=== PATIENT | male | born 1975 ===

== ENCOUNTER 2017-07-26 11:30 | Emergency (ER) | payer OTHER ==
[2017-07-26 11:30] VITALS: BMI 29.6
[2017-07-26 11:45] VITALS: TEMP 98.6; O2SAT 98
[2017-07-26] MEDS ORDERED: Amoxicillin-Clav 875-125 mg Tab PO STA (12:28)
--- NOTE | 2017-07-26 12:31 | ED PDOC ---
Arrival/HPI - General Chief Complaint: Cough, Cold, Congestion Time Seen by Provider: 07/26/17 12:28 Historian: Patient - History of Present Illness Narrative History of Present Illness (Text): 07/26/17 41 yo male w/o significant PMHx come in for evaluation of nasal congestion, runny nose, sore throat gradually worsen for past few days. Pt reports, developed frontal headache since yesterday. Otherwise, pt denies high fever, chills, denies worse headache life, visual changes, focal deficits, syncope, throat tightness, neck pain, CP, SOB, dyspnea, diaphoresis, palpitation, abd. pain, N/V/D, back pain, UTI sx. Ambulate to Ed for evaluation, not in any apparent distress. Past Medical History - Provider Review Nursing Documentation Reviewed: Yes - Travel History Have you recently traveled outside [place] w/in the past 3 mons?: No - Past History Past History: No Previous - Infectious Disease Hx of Infectious Diseases: None - Tetanus Immunization Tetanus Immunization: Unknown - Psychiatric Hx Substance Use: No Family/Social History - Physician Review Nursing Documentation Reviewed: Yes Family/Social History: No Known Family HX Smoking Status: Never Smoked Hx Alcohol Use: Yes Frequency of alcohol use: Socially Hx Substance Use: No Allergies/Home Meds Allergies/Adverse Reactions: Allergies No Known Allergies Allergy (Verified 07/26/17 11:45) Review of Systems - Physician Review All systems were reviewed & negative as marked: Yes - Review of Systems Constitutional: Normal Eyes: Normal ENT: Sore Throat, Rhinorrhea Respiratory: Normal Cardiovascular: Normal Gastrointestinal: Normal Genitourinary Male: Normal Musculoskeletal: Normal Skin: Normal Neurological: Headache. absent: Dizziness Endocrine: Normal Hemo/Lymphatic: Normal Psychiatric: Normal Physical Exam Vital Signs Temp Pulse Resp BP Pulse Ox 07/26/17 12:37 72 17 125/80 98 07/26/17 11:42 98.6 F 74 16 130/85 98 Temperature: Afebrile Blood Pressure: Normal Pulse: Regular Respiratory Rate: Normal Appearance: Positive for: Well-Appearing, Non-Toxic, Comfortable Pain Distress: None Mental Status: Positive for: Alert and Oriented X 3 - Systems Exam Head: Present: Normocephalic Conjunctiva: Present: Normal Ears: Present: NORMAL TM (B/L) Mouth: Present: Moist Mucous Membranes, Normal Lips. No: Drooling Pharnyx: Present: Other (uvula midline, no edema.). No: ERYTHEMA, EXUDATE, TONSILS ENLARGED Nose (Internal): Present: Moist, Engorged, Rhinorrhea (clear B/L), Other (B/L mild paranasal tenderness, no edema, no erythema. Mild B/L frontal sinus tenderness, no edema, no erythema.) Neck: Present: Trachea Midline. No: Meningeal Signs, JVD, Lymphadenopathy, Bruit Respiratory/Chest: Present: Clear to Auscultation, Good Air Exchange. No: Respiratory Distress, Accessory Muscle Use Cardiovascular: Present: Regular Rate and Rhythm, Normal S1, S2. No: Murmurs Abdomen: Present: Normal Bowel Sounds. No: Tenderness, Distention, Peritoneal Signs Back: Present: Normal Inspection Upper Extremity: Present: Normal ROM. No: Deformity Lower Extremity: Present: Normal ROM. No: Edema, Deformity Neurological: Present: GCS=15, Speech Normal, Gait Normal Skin: Present: Warm, Dry, Normal Color. No: Rashes Psychiatric: Present: Alert, Oriented x 3, Normal Insight, Normal Concentration Medical Decision Making ED Course and Treatment: 07/26/17 On re-eval, pt is afebrile, hemodynamicaly stable. Non-toxic. PulseOx 98% RA ENT: exam c/w mild sinusititis. Neck: Supple, (-) meningeal sign. Lungs: CTA B/L, BS equal B/L. Abd: benign. Neuorlogicaly intact. Pt advised and ref. to f/u with PMD, ENT in 2-3 days for re-eavl. return to ED if any worsening or new changes. - Medication Orders Current Medication Orders: Discontinued Medications Amoxicillin/Clavulanate Potassium (Augmentin 875 Mg-125 Mg Tab) 1 tab PO STAT STA PRN Reason: Protocol Stop: 07/26/17 12:29 Last Admin: 07/26/17 12:36 Dose: 1 tab Prednisone (Prednisone Tab) 60 mg PO STAT ONE Stop: 07/26/17 12:29 Last Admin: 07/26/17 12:36 Dose: 60 mg Disposition/Present on Arrival - Present on Arrival Any Indicators Present on Arrival: No History of DVT/PE: No History of Uncontrolled Diabetes: No Urinary Catheter: No History of Decub. Ulcer: No History Surgical Site Infection Following: None - Disposition Have Diagnosis and Disposition been Completed?: Yes Diagnosis: Sinusitis Disposition: HOME/ ROUTINE Disposition Time: 12:20 Patient Plan: Discharge Condition: STABLE Discharge Instructions (ExitCare): Sinusitis (ED) Additional Instructions: Take medication as prescribed Encourage fluids Follow up with PMD in 2-3 days for re-evaluation. Return to ED if any worsening or new changes. Prescriptions: Amoxicillin/Clavulanate [Augmentin 875 MG-125 MG] 1 tab PO BID #14 tab Prednisone [Deltasone] 40 mg PO DAILY #6 tablet Referrals: [facility] [place] [Outside] - Follow up with primary Forms: [facility] (Maltese), WORK NOTE
[2017-07-26 12:39] VITALS: BP 125/80; PULSE 72; RESP 17
== END 2017-07-26 12:40 | disposition home or self-care (01) ==
LOC: ED 11:30
DX: J32.9 Chronic sinusitis, unspecified (principal)